=== PATIENT | male | born 1960 | race Caucasian/White ===

== ENCOUNTER 2019-04-08 16:20 | Outpatient (CLI) | payer BC ==
--- NOTE | 2019-04-08 16:42 | RAD ---
Exam:4 views right knee HISTORY: Pain. COMPARISON: None FINDINGS: Joint spaces are preserved. No fracture or malalignment. No joint effusion. IMPRESSION: Unremarkable 4 views right knee.
== END 2019-04-08 16:21 | disposition home or self-care (01) ==
LOC: SCSRAD 16:20
PROVIDERS: ATTEND Nurse Practitioner Family
DX: M25.561 Pain in right knee (principal); M25.562 Pain in left knee; E78.2 Mixed hyperlipidemia